=== PATIENT | female | born 1990 | race African-American/Black ===

== ENCOUNTER 2020-09-07 22:24 | Day surgery (SDC) | payer OTHER ==
[2020-09-07 22:45] VITALS: BMI 31.9
[2020-09-08] MEDS ORDERED: hydrALAZINE 20 MG/ML VIAL SLOW IVP PRN (00:05)
== END 2020-09-08 00:40 | disposition home or self-care (01) ==
LOC: CSHERS 22:24 → CSHLD/OP 22:24
PROVIDERS: ATTEND Obstetrics & Gynecology
DX: Z04.3 Encounter for examination and observation following other accident (principal); Z3A.18 18 weeks gestation of pregnancy; Y04.2XXA Assault by strike against or bumped into by another person, initial encounter
CPT/HCPCS: 99283